=== PATIENT | female | born 1990 ===

== ENCOUNTER 2018-02-21 15:46 | Emergency (ER) | payer OTHER ==
[2018-02-21 16:35] VITALS: BMI 32.9
[2018-02-21 16:50] VITALS: RESP 18; O2SAT 100
--- NOTE | 2018-02-21 17:10 | ED PDOC ---
Arrival/HPI - General Chief Complaint: Female Genitourinary Time Seen by Provider: 02/21/18 16:24 Historian: Patient - History of Present Illness Narrative History of Present Illness (Text): 02/21/18 17:09 28 yo F reports 1 day history of vaginal spotting, without pain. Patient had a ( +) HPT done a few days ago. Otherwise: (-) N/V, (-) fever, (-) urinary symptoms , (-) prior salpingitis, (-) prior ectopic . Has (-) care and (-) prior OB ultrasound. [employer] PANELBOARD HISTORY: 1 Para 0 AB 0 LNMP 12/28 Past Medical History - Psychiatric Hx Substance Use: No - Anesthesia Hx Anesthesia: No Family/Social History Family/Social History: No Known Family HX Smoking Status: Never Smoked Hx Alcohol Use: No Hx Substance Use: No Allergies/Home Meds Allergies/Adverse Reactions: Allergies No Known Allergies Allergy (Verified 02/21/18 16:30) Review of Systems - Review of Systems Constitutional: absent: Fatigue, Fevers Respiratory: absent: SOB, Cough Cardiovascular: absent: Chest Pain, Palpitations Gastrointestinal: Nausea. absent: Abdominal Pain, Vomiting Genitourinary Female: Vaginal Bleeding. absent: Dysuria, Frequency, Vaginal Discharge Musculoskeletal: absent: Arthralgias, Back Pain, Neck Pain Skin: absent: Rash, Pruritis Neurological: absent: Headache, Dizziness Physical Exam Vital Signs Temp Pulse Resp BP Pulse Ox 02/21/18 19:09 98.3 F 72 18 122/72 100 02/21/18 16:49 98.4 F 89 18 113/67 100 Temperature: Afebrile Blood Pressure: Normal Pulse: Regular Respiratory Rate: Normal Appearance: Positive for: Well-Appearing, Non-Toxic, Comfortable Pain Distress: None Mental Status: Positive for: Alert and Oriented X 3 - Systems Exam Head: Present: Atraumatic, Normocephalic Pupils: Present: PERRL Extroacular Muscles: Present: EOMI Conjunctiva: Present: Normal Mouth: Present: Moist Mucous Membranes Neck: Present: Normal Range of Motion Respiratory/Chest: Present: Clear to Auscultation, Good Air Exchange. No: Respiratory Distress, Accessory Muscle Use Cardiovascular: Present: Regular Rate and Rhythm, Normal S1, S2. No: Murmurs Abdomen: No: Tenderness, Distention, Peritoneal Signs Back: Present: Normal Inspection. No: CVA Tenderness, Midline Tenderness Upper Extremity: Present: Normal Inspection. No: Cyanosis, Edema Lower Extremity: Present: Normal Inspection. No: Edema Neurological: Present: GCS=15, CN II-XII Intact, Speech Normal, Motor Func Grossly Intact, Normal Sensory Function Skin: Present: Warm, Dry, Normal Color. No: Rashes Psychiatric: Present: Alert, Oriented x 3, Normal Insight, Normal Concentration Medical Decision Making ED Course and Treatment: 02/21/18 17:07 Plan : - Labs - UA - UHcg - TV US 02/21/18 18:41 Labs reviewed : Beta quant 3605 Type and screen A + UA +blood US TV : Presumed early intrauterine gestation. Gestational sac and yolk sac identified without pole. On reevaluation, patient reports improvement of symptoms, denies any increase in vaginal bleeding or abdominal pain. On exam, patient remains awake alert and oriented 3 in no acute distress. Abdomen soft and nontender. Based on history, exam and diagnostic results plan will be for outpatient follow up with repeat beta quant and US. Advised to follow up with ob in 2 days without fail. Advised to take medication as prescribed. Return to the emergency room at any time for any new or worsening symptoms. Patient states she fully agrees with and understands discharge instructions. States that she agrees with the plan and disposition. Verbalized and repeated discharge instructions and plan. I have given the patient opportunity to ask any additional questions. - Lab Interpretations Lab Results: 02/21/18 17:09 02/21/18 17:09 Lab Results 02/21/18 17:29: Blood Type Confirm A POSITIVE 02/21/18 17:09: Beta HCG, Quant 3605.30 H 02/21/18 17:09: Blood Type A POSITIVE, Antibody Screen Negative, BBK History Checked No verified bt 02/21/18 17:09: Sodium 139, Potassium 4.7, Chloride 103, Carbon Dioxide 27, Anion Gap 14, BUN 11, Creatinine 0.6 L, Est GFR ( Amer) > 60, Est GFR ( Non-Af Amer) > 60, Random Glucose 93, Calcium 8.9, Total Bilirubin 0.2, AST 16, ALT 17, Alkaline Phosphatase 60, Total Protein 7.5, Albumin 4.3, Globulin 3.2, Albumin/Globulin Ratio 1.4 02/21/18 17:09: Urine Color Yellow, Urine Appearance Slight-cloudy, Urine pH 8.0 , Ur Specific Raven 1.015, Urine Protein 30 H, Urine Glucose (UA) Negative, Urine Ketones Negative, Urine Blood Large H, Urine Nitrate Negative, Urine Bilirubin Negative, Urine Urobilinogen 1.0 H, Ur Leukocyte Esterase Negative, Urine RBC 25 - 30, Urine WBC Negative, Ur Epithelial Cells 1 - 3, Urine Bacteria Small 02/21/18 17:09: WBC 9.5, RBC 4.52, Hgb 12.8, Hct 37.1, MCV 82.1, MCH 28.3, MCHC 34.5, RDW 13.4, Plt Count 234, MPV 10.5, Gran % 62.7, Lymph % (Auto) 28.8, Preston % (Auto) 7.0 H, Eos % (Auto) 1.3 L, Baso % (Auto) 0.2, Gran # 5.95, Lymph # ( Auto) 2.7, Preston # (Auto) 0.7 H, Eos # (Auto) 0.1, Baso # (Auto) 0.02 - RAD Interpretation Radiology Orders: 02/21/18 17:05 OB TRANSVAGINAL [US] Stat - PA / TECHNICAL PROFESSIONAL / Resident Statement MD/DO has reviewed & agrees with the documentation as recorded. Disposition/Present on Arrival - Present on Arrival Any Indicators Present on Arrival: No History of DVT/PE: No History of Uncontrolled Diabetes: No Urinary Catheter: No History of Decub. Ulcer: No History Surgical Site Infection Following: None - Disposition Have Diagnosis and Disposition been Completed?: Yes Diagnosis: Threatened Disposition: HOME/ ROUTINE Disposition Time: 18:40 Patient Plan: Discharge Condition: STABLE Discharge Instructions (ExitCare): Threatened Miscarriage, Bleeding With Additional Instructions: Thank you for letting us take care of you today. You were treated for threatened miscarriage. The emergency medical care you received today was directed at your acute symptoms. If you were prescribed any medication, please fill it and take as directed. It may take several days for your symptoms to resolve. Return to the Emergency Department if your symptoms worsen, do not improve, or if you have any other problems. Please contact OB doctor in 2 days for re-evaluation and follow up, have beta quant and US repeated as an outpatient. Bring any paperwork you were given at discharge with you along with any medications you are taking to your follow up visit. Our treatment cannot replace ongoing medical care by a primary care provider (PCP) outside of the emergency department. Thank you for allowing the [facility] team to be part of your care today. If you had a urine culture: It will take several days for the results, if any change in treatment is needed we will contact you. Prescriptions: Multivit/Folic Acid/I [] 1 tab PO DAILY #30 tab Referrals: PCP,NO [Primary Care Provider] - [facility] with [facility] [Outside] - Follow up with primary [facility] [Outside] - Follow up with primary Forms: [employer] ([place]bek), WORK NOTE
[2018-02-21 17:21] LABS: URINE BILIRUBIN NEGATIVE (NEGATIVE); URINE BLOOD LARGE (NEGATIVE); URINE GLUCOSE (UA) NEGATIVE (NEGATIVE); URINE LEUKOCYTE ESTERASE NEGATIVE Leu/uL (NEGATIVE); URINE PROTEIN 30 mg/dL (<30 mg/dL)
[2018-02-21 17:22] LABS: URINE APPEARANCE SLIGHT-CLOUDY (CLEAR); URINE COLOR YELLOW (YELLOW)
[2018-02-21 17:23] LABS: BASO # 0.02 K/mm3 (0.0-2.0); BASO % 0.2 % (0.0-3.0); EOS # 0.1 (0.0-0.7); EOS % 1.3 % (1.5-5.0); GRAN # 5.95 (1.4-6.5); GRAN % 62.7 % (50.0-68.0); HEMOGLOBIN 12.8 g/dL (12.0-16.0); LYMPH # 2.7 (1.2-3.4); LYMPH % 28.8 % (22.0-35.0); MEAN CELL VOLUME 82.1 fl (80.0-105.0); MEAN CORPUSCULAR HEMOGLOBIN 28.3 pg (25.0-35.0); MEAN CORPUSCULAR HGB CONC 34.5 g/dl (31.0-37.0); MEAN PLATELET VOLUME 10.5 fl (7.0-11.0); MONO # 0.7 (0.1-0.6); RBC 4.52 10^6/uL (3.5-6.1); RED CELL DISTRIBUTION WIDTH 13.4 % (11.5-14.5); WHITE BLOOD COUNT 9.5 10^3/ul (4.5-11.0)
[2018-02-21 17:29] LABS: URINE RBC 25 - 30 /hpf (0-2); URINE WBC NEGATIVE /hpf (0-6)
[2018-02-21 17:30] LABS: URINE BACTERIA SMALL (NEG)
[2018-02-21 17:36] LABS: ALB/GLOB RATIO 1.4 (1.1-1.8); ALBUMIN 4.3 g/dL (3.0-4.8); ALT/SGPT 17 U/L (7-56); AST/SGOT 16 U/L (14-36); BLOOD UREA NITROGEN 11 mg/dL (7-21); CALCIUM 8.9 mg/dL (8.4-10.5); GFR AFRICAN-AMERICAN > 60; GFR NON-AFRICAN AMERICAN > 60
--- NOTE | 2018-02-21 18:23 | US ---
Date of service: 02/21/2018 PROCEDURE: First trimester ultrasound Beta HCG results are pending HISTORY: , bleeding COMPARISON: None available. TECHNIQUE: Standard protocol for this study/examination. FINDINGS: LMP: 12/28/2017 Prior examinations from the current : None TECHNIQUE: Real-time 2D imaging, duplex and color Doppler. FINDINGS: Gestational age cannot be calculated based on gestational sac measurement 0.72 cm Gestational age derived from LMP: 7 weeks 6 days CHUCK based on LMP: 10/04/2018 Yolk sac identified Uterus: Unremarkable. Cervix: No Cervical abnormalities: Negative examination for cervical dilatation or effacement. Closed cervix measuring 3.72 cm Subchorionic hemorrhage: None UTERUS: 4.7 x 6.7 x 10.7 cm. ADNEXA: Right: 2.1 x 3.3 x 3.6 cm. Complex cyst 1.8 x 2.5 cm Normal Doppler arterial waveform documented. Left: 1.6 x 2.1 x 2.8 cm. Normal Doppler arterial waveform documented Fluid in the cul-de-sac: None IMPRESSION: Presumed early intrauterine gestation. Gestational sac and yolk sac identified without pole.
[2018-02-21 19:10] VITALS: BP 122/72; PULSE 72; TEMP 98.3
== END 2018-02-21 19:11 | disposition home or self-care (01) ==
LOC: ED 15:46
DX: O20.0 Threatened abortion (principal)

== ENCOUNTER 2018-02-24 14:42 | Emergency (ER) | payer SELFPAY ==
[2018-02-24 14:42] VITALS: BMI 32.9
--- NOTE | 2018-02-24 15:21 | ED PDOC ---
Arrival/HPI - General Time Seen by Provider: 02/24/18 14:45 Historian: Patient - History of Present Illness Narrative History of Present Illness (Text): 02/24/18 15:17 28yo female who present with complaint of crampy lower abdominal pain with vaginal bleeding. Patient was seen here on 02/21/18 and was advised to f/u with OB for a repeat US and beta quant. She came back to ED today because she don't have a OB. She denies chest pain, dizziness, nausea, focal weakness, headache, vomiting, diarrhea, urinary symptoms, any other complaint. Past Medical History - Provider Review Nursing Documentation Reviewed: Yes - Psychiatric Hx Substance Use: No - Anesthesia Hx Anesthesia: No Family/Social History - Physician Review Nursing Documentation Reviewed: Yes Family/Social History: Unknown Family HX Smoking Status: Never Smoked Hx Alcohol Use: No Hx Substance Use: No Allergies/Home Meds Allergies/Adverse Reactions: Allergies No Known Allergies Allergy (Verified 02/24/18 15:27) Review of Systems - Physician Review All systems were reviewed & negative as marked: Yes - Review of Systems Constitutional: Normal Eyes: Normal ENT: Normal Respiratory: Normal Cardiovascular: Normal Gastrointestinal: Abdominal Pain. absent: Constipation, Diarrhea, Nausea, Vomiting, Hematochezia, Hematemesis Genitourinary Female: Vaginal Bleeding Musculoskeletal: Normal Skin: Normal Neurological: Normal Endocrine: Normal Hemo/Lymphatic: Normal Psychiatric: Normal Physical Exam Vital Signs Reviewed: Yes Vital Signs Temp Pulse Resp BP Pulse Ox 02/24/18 17:37 100 02/24/18 17:36 82 16 124/70 100 02/24/18 15:00 98 F 89 18 120/64 96 Temperature: Afebrile Blood Pressure: Normal Pulse: Regular Respiratory Rate: Normal Appearance: Positive for: Well-Appearing, Non-Toxic, Comfortable Pain Distress: None Mental Status: Positive for: Alert and Oriented X 3 - Systems Exam Head: Present: Atraumatic, Normocephalic Pupils: Present: PERRL Extroacular Muscles: Present: EOMI Conjunctiva: Present: Normal Mouth: Present: Moist Mucous Membranes Neck: Present: Normal Range of Motion Respiratory/Chest: Present: Clear to Auscultation, Good Air Exchange. No: Respiratory Distress, Accessory Muscle Use Cardiovascular: Present: Regular Rate and Rhythm, Normal S1, S2. No: Murmurs Abdomen: No: Tenderness, Distention, Peritoneal Signs, Rebound, Guarding, McBurney's Point Tender, Rovsing's Sign Present Back: Present: Normal Inspection Upper Extremity: Present: Normal Inspection. No: Cyanosis, Edema Lower Extremity: Present: Normal Inspection. No: Edema Neurological: Present: GCS=15, CN II-XII Intact, Speech Normal Skin: Present: Warm, Dry, Normal Color. No: Rashes Psychiatric: Present: Alert, Oriented x 3, Normal Insight, Normal Concentration Medical Decision Making ED Course and Treatment: 02/25/18 00:23 PT presented for a repeat beta and US. Beta quant was 395.29. I was 3605.30 on 02/21/18. Transvaginal US IMPRESSION: No intrauterine gestational sac identified. Cannot rule out ectopic in the absence of a demonstrated intrauterine gestation. Otherwise unremarkable. Result was DW the pt. Pt had a spontaneous . She was advised to f/u with OB for a repeat beta within a week. - Lab Interpretations Lab Results: Lab Results 02/24/18 15:25: Beta HCG, Quant 395.29 H - RAD Interpretation Radiology Orders: 02/24/18 14:58 TRANSVAGINAL [US] Stat Disposition/Present on Arrival - Present on Arrival Any Indicators Present on Arrival: No History of DVT/PE: No History of Uncontrolled Diabetes: No Urinary Catheter: No History Surgical Site Infection Following: None - Disposition Have Diagnosis and Disposition been Completed?: Yes Diagnosis: Complete miscarriage Disposition: HOME/ ROUTINE Disposition Time: 17:05 Patient Plan: Discharge Condition: STABLE Discharge Instructions (ExitCare): Miscarriage Additional Instructions: Follow up with OB within a week Return to ED for any new or worsening symptoms Referrals: Diane Williamson MD [Staff Provider] - [facility] [Outside] - Follow up with primary Forms: [employer] ([place] Islander), WORK NOTE
[2018-02-24 15:27] VITALS: TEMP 98
--- NOTE | 2018-02-24 17:03 | US ---
Date of service: 02/24/2018 HISTORY: /bleeding COMPARISON: None available. TECHNIQUE: Transabdominal and transvaginal FINDINGS: UTERUS: Measures 8.1 x 4.9 x 6.0 cm. Normal in size and appearance. No fibroid or other mass lesion seen. ENDOMETRIUM: Measures 15 mm in diameter. No intrauterine gestational sac identified. Cannot rule out ectopic due to the absence of an intrauterine gestation. Please correlate with serial beta HCG evaluation. CERVIX: No cervical abnormality identified. RIGHT OVARY: Measures 3.0 x 2.3 x 3.0 cm. No solid mass. Normal flow. LEFT OVARY: Measures 2.9 x 1.5 x 2.2 cm. No solid mass. Normal flow. FREE FLUID: No significant free fluid noted. OTHER FINDINGS: None. IMPRESSION: No intrauterine gestational sac identified. Cannot rule out ectopic in the absence of a demonstrated intrauterine gestation. Otherwise unremarkable.
[2018-02-24 17:37] VITALS: BP 124/70; PULSE 82; RESP 16; O2SAT 100
== END 2018-02-24 17:37 | disposition home or self-care (01) ==
LOC: ED 14:42
DX: O03.9 Complete or unspecified spontaneous abortion without complication (principal)